=== PATIENT | female | born 1940 | race Caucasian/White ===

== ENCOUNTER 2020-08-21 17:21 | Observation (INO) ==
[2020-08-21] MEDS ORDERED: 0.9 % Sodium Chloride 1,000 ML IVC ONE (18:24)
[2020-08-21] MEDS ORDERED: Isovue-370 500 ML BOTTLE IVP ONE (18:24)
[2020-08-21] MEDS ORDERED: Ondansetron 4 MG/2 ML VIAL IVP ONE (18:40)
[2020-08-21] MEDS ORDERED: Morphine Sulfate 2 MG/ML SYRINGE IVP ONE (18:40)
[2020-08-21 18:54] LABS: Basophils # 0.1 K/mcL (0.0-0.2); Basophils % 0.8 %; Eosinophils # 0.3 K/mcL (0.0-0.6); Eosinophils % 3.9 %; Hematocrit 30.8 % (35.3-44.9); Hemoglobin 10.1 g/dL (11.5-15.4); Immature Granulocytes % 0.2 % (0-4); Lymphocytes # 2.1 K/mcL (0.6-4.6); Lymphocytes % 24.4 %; Mean Corpuscular HGB Conc 32.8 g/dL (31.6-35.5); Mean Corpuscular Hemoglobin 31.3 pg (28.0-33.3); Mean Corpuscular Volume 95.4 fL (83.0-100.0); Mean Platelet Volume 9.8 fL (9.4-12.4); Monocytes # 0.8 K/mcL (0.0-1.3); Monocytes % 9.2 %; Neutrophils # 5.2 K/mcL (1.6-8.9); Platelet Count 350 K/mcL (140-400); Red Blood Count 3.23 M/mcL (3.82-4.97); Red Cell Distribution Width 12.4 % (11.5-14.5); Segmented Neutrophils % 61.5 %; White Blood Count 8.5 K/mcL (4.3-11.1)
[2020-08-21 19:05] LABS: INR 1.1; Prothrombin Time 12.6 Seconds (9.4-12.1)
[2020-08-21 19:08] LABS: Activated Partial Thrombo Time 32.4 Seconds (26.0-36.0)
[2020-08-21 19:19] LABS: BUN/Creatinine Ratio 22 (6-26); Blood Urea Nitrogen 20 mg/dL (8-23); Calcium 9.5 mg/dL (8.6-10.3); Carbon Dioxide 24 mEq/L (23-29); Chloride 108 mEq/L (98-107); Glucose 82 mg/dL (70-105); Osmolality,Calculated 294 (280-300); Potassium 4.5 mEq/L (3.5-5.1); Sodium 141 mEq/L (136-145); Troponin I < 0.03 ng/mL (< 0.04); eGFR For African Americans > 60 (> 60); eGFR For Non-African Americans 59 (> 60)
[2020-08-21] MEDS ORDERED: *HR* FentaNYL (PF) 100 MCG/2 ML VIAL IVP ONE ×2 (19:36→23:06)
[2020-08-21] MEDS ORDERED: Lidocaine Viscous Oral Soln 15 ML SOLUTION MM ONE (21:08)
[2020-08-21 21:38] LABS: Bilirubin,Urine Negative (Negative); Blood,Urine Negative (Negative); Clarity,Urine Clear (Clear); Color,Urine Light-Yellow (Yellow); Glucose,Urine (UA) Normal (Normal); Ketones,Urine 10 mg/dL (Negative); Leukocyte Esterase,Urine Small (Negative); Mucus,Urine Few per lpf (None-Few); Nitrite,Urine Negative (Negative); PH,Urine 5.5 pH Units (5.0-8.0); Protein,Urine Negative (Neg-Trace); RBC,Urine 0-3 per hpf (0-3); Specific Gravity,Urine > 1.030 (1.010-1.025); Urobilinogen,Urine Normal (Normal); WBC,Urine 0-3 per hpf (0-3)
[2020-08-22] MEDS ORDERED: Ondansetron ODT 4 MG TAB.RAPDIS SL PRN (00:11)
[2020-08-22] MEDS ORDERED: Naloxone 0.4 MG/ML INJ IVP PRN (00:11)
[2020-08-22] MEDS: Pantoprazole 40 MG VIAL IVP SCH ×3 (01:50→16:44)
[2020-08-22 02:10] LABS: Basophils % 0.6 %; Eosinophils # 0.2 K/mcL (0.0-0.6); Eosinophils % 3.6 %; Hemoglobin 9.7 g/dL (11.5-15.4); Immature Granulocytes % 0.5 % (0-4); Lymphocytes # 1.6 K/mcL (0.6-4.6); Lymphocytes % 24.8 %; Mean Corpuscular HGB Conc 32.3 g/dL (31.6-35.5); Mean Corpuscular Volume 95.8 fL (83.0-100.0); Mean Platelet Volume 9.9 fL (9.4-12.4); Monocytes # 0.5 K/mcL (0.0-1.3); Monocytes % 7.7 %; Neutrophils # 4.1 K/mcL (1.6-8.9); Platelet Count 344 K/mcL (140-400); Red Blood Count 3.13 M/mcL (3.82-4.97); Red Cell Distribution Width 12.7 % (11.5-14.5); Segmented Neutrophils % 62.8 %; White Blood Count 6.5 K/mcL (4.3-11.1)
[2020-08-22 02:32] LABS: BUN/Creatinine Ratio 23 (6-26); Blood Urea Nitrogen 19 mg/dL (8-23); Calcium 9.2 mg/dL (8.6-10.3); Carbon Dioxide 22 mEq/L (23-29); Chloride 109 mEq/L (98-107); Glucose 78 mg/dL (70-105); Osmolality,Calculated 293 (280-300); Potassium 3.8 mEq/L (3.5-5.1); Sodium 141 mEq/L (136-145); eGFR For African Americans > 60 (> 60); eGFR For Non-African Americans > 60 (> 60)
[2020-08-22] MEDS ORDERED: 0.9 % Sodium Chloride 1,000 ML IVC SCH (10:30)
[2020-08-22] MEDS ORDERED: Ipratropium/Albuterol Neb 3 ML IH PRN (12:19)
[2020-08-22] MEDS ORDERED: Acetaminophen IV 500 MG/50 ML BAG IVPB ONE (15:11)
[2020-08-22] MEDS: Sucralfate 1 GM TABLET PO SCH (16:44)
[2020-08-22] MEDS: ALPRAZolam 0.25 MG TABLET PO PRN (21:45)
[2020-08-22] MEDS: Acetaminophen 325 MG TABLET PO PRN (21:50)
[2020-08-22] MEDS ORDERED: Budesonide Neb 0.5 MG/2 ML IH ONE (22:03)
[2020-08-22] MEDS: Ipratropium/Albuterol Neb 3 ML IH SCH (22:05)
[2020-08-22] MEDS: Budesonide Neb 0.25 MG/2 ML IH SCH (22:06)
[2020-08-23 01:49] LABS: Basophils % 0.3 %; Eosinophils # 0.5 K/mcL (0.0-0.6); Eosinophils % 6.9 %; Hematocrit 27.9 % (35.3-44.9); Immature Granulocytes % 0.4 % (0-4); Lymphocytes # 0.9 K/mcL (0.6-4.6); Mean Corpuscular HGB Conc 32.3 g/dL (31.6-35.5); Mean Corpuscular Hemoglobin 30.9 pg (28.0-33.3); Mean Corpuscular Volume 95.9 fL (83.0-100.0); Mean Platelet Volume 9.9 fL (9.4-12.4); Monocytes # 0.5 K/mcL (0.0-1.3); Monocytes % 6.6 %; Neutrophils # 5.7 K/mcL (1.6-8.9); Platelet Count 323 K/mcL (140-400); Red Blood Count 2.91 M/mcL (3.82-4.97); Red Cell Distribution Width 12.9 % (11.5-14.5); Segmented Neutrophils % 73.8 %; White Blood Count 7.7 K/mcL (4.3-11.1)
[2020-08-23 02:07] LABS: BUN/Creatinine Ratio 22 (6-26); Blood Urea Nitrogen 22 mg/dL (8-23); Calcium 8.6 mg/dL (8.6-10.3); Carbon Dioxide 23 mEq/L (23-29); Chloride 110 mEq/L (98-107); Glucose 133 mg/dL (70-105); Osmolality,Calculated 293 (280-300); Potassium 3.8 mEq/L (3.5-5.1); Sodium 139 mEq/L (136-145); eGFR For African Americans > 60 (> 60); eGFR For Non-African Americans 53 (> 60)
[2020-08-23] MEDS: Ipratropium/Albuterol Neb 3 ML IH SCH ×3 (04:28→16:15)
[2020-08-23] MEDS: Pantoprazole 40 MG VIAL IVP SCH (05:39)
[2020-08-23] MEDS: Sucralfate 1 GM TABLET PO SCH ×2 (07:56→15:44)
[2020-08-23] MEDS: Acetaminophen 325 MG TABLET PO PRN ×2 (08:00→13:44)
[2020-08-23] MEDS ORDERED: Metoprolol XL (24 HR) Succ 50 MG TAB.ER.24H PO SCH (09:00)
[2020-08-23] MEDS: Budesonide Neb 0.25 MG/2 ML IH SCH (10:16)
[2020-08-23 10:32] VITALS: BP 114/59
[2020-08-23] MEDS: ALPRAZolam 0.25 MG TABLET PO PRN (15:58)
== END 2020-08-23 18:10 | disposition short-term general hospital (02) ==
LOC: EMEROOARM 17:21 → 3BNU 17:21
PROVIDERS: ADMIT Student in an Organized Health Care Education/Training Program; ATTEND Student in an Organized Health Care Education/Training Program

== ENCOUNTER 2020-12-12 11:19 | Inpatient (IN) ==
[2020-12-12] MEDS ORDERED: Acetaminophen 325 MG TABLET PO PRN (15:13)
[2020-12-12] MEDS ORDERED: Naloxone 0.4 MG/ML INJ IVP PRN (15:13)
[2020-12-12] MEDS ORDERED: Ondansetron 4 MG/2 ML VIAL IVP PRN (15:13)
[2020-12-12] MEDS ORDERED: Albuterol 2.5 MG/3 ML NEBULIZER IH PRN (15:35)
[2020-12-12] MEDS ORDERED: ALPRAZolam 0.25 MG TABLET PO PRN (16:14)
[2020-12-12] MEDS: Ipratropium/Albuterol Neb 3 ML IH SCH ×2 (16:37→21:06)
[2020-12-12] MEDS ORDERED: Perflutren Lipid Microsphere 1.3 ML in 0.9 % Sodium Chloride 8.7 ML IVP PRN (16:38)
[2020-12-12] MEDS: Azithromycin 500 MG in 0.9 % Sodium Chloride 250 ML IVPB SCH (17:58)
[2020-12-12] MEDS: MethylPREDNISolone 40 MG/ML VIAL IVP SCH ×2 (18:05→23:36)
[2020-12-12] MEDS ORDERED: Budesonide Neb 0.25 MG/2 ML IH SCH (21:00)
[2020-12-13 00:45] LABS: Hematocrit 28.1 % (35.3-44.9); Hemoglobin 9.2 g/dL (11.5-15.4); Mean Corpuscular HGB Conc 32.7 g/dL (31.6-35.5); Mean Corpuscular Volume 91.5 fL (83.0-100.0); Mean Platelet Volume 9.9 fL (9.4-12.4); Platelet Count 274 K/mcL (140-400); Red Blood Count 3.07 M/mcL (3.82-4.97); Red Cell Distribution Width 13.2 % (11.5-14.5); White Blood Count 6.3 K/mcL (4.3-11.1)
[2020-12-13 00:56] LABS: BUN/Creatinine Ratio 39 (6-26); Blood Urea Nitrogen 42 mg/dL (8-23); Calcium 9.6 mg/dL (8.6-10.3); Carbon Dioxide 19 mEq/L (23-29); Chloride 105 mEq/L (98-107); Glucose 153 mg/dL (70-105); Magnesium 1.7 mg/dL (1.6-2.6); Osmolality,Calculated 292 (280-300); Potassium 4.3 mEq/L (3.5-5.1); Sodium 134 mEq/L (136-145); eGFR For African Americans 58 (> 60); eGFR For Non-African Americans 48 (> 60)
[2020-12-13 00:57] LABS: Troponin I < 0.03 ng/mL (< 0.04)
[2020-12-13] MEDS: Ipratropium/Albuterol Neb 3 ML IH SCH ×4 (03:05→22:14)
[2020-12-13] MEDS: MethylPREDNISolone 40 MG/ML VIAL IVP SCH (05:46)
[2020-12-13] MEDS ORDERED: *HR* Enoxaparin 40 MG/0.4 ML SYRINGE SQ SCH (07:00)
[2020-12-13] MEDS: Metoprolol XL (24 HR) Succ 50 MG TAB.ER.24H PO SCH (08:23)
[2020-12-13] MEDS: predniSONE 20 MG TABLET PO SCH (08:24)
[2020-12-13] MEDS: Budesonide Neb 0.25 MG/2 ML IH SCH ×2 (10:09→22:14)
[2020-12-13] MEDS: Azithromycin 500 MG in 0.9 % Sodium Chloride 250 ML IVPB SCH (17:49)
[2020-12-14 01:48] LABS: Basophils % 0.3 %; Hematocrit 25.8 % (35.3-44.9); Hemoglobin 8.4 g/dL (11.5-15.4); Immature Granulocytes % 0.5 % (0-4); Lymphocytes # 1.9 K/mcL (0.6-4.6); Lymphocytes % 12.6 %; Mean Corpuscular HGB Conc 32.6 g/dL (31.6-35.5); Mean Corpuscular Volume 92.1 fL (83.0-100.0); Mean Platelet Volume 10.6 fL (9.4-12.4); Monocytes # 1.1 K/mcL (0.0-1.3); Monocytes % 7.5 %; Neutrophils # 11.9 K/mcL (1.6-8.9); Platelet Count 277 K/mcL (140-400); Red Cell Distribution Width 13.4 % (11.5-14.5); Segmented Neutrophils % 79.1 %
[2020-12-14 01:58] LABS: Basophils # 0.1 K/mcL (0.0-0.2); White Blood Count 15.1 K/mcL (4.3-11.1)
[2020-12-14 02:19] LABS: Estimated Average Glucose 120 mg/dl; Hemoglobin A1C 5.8 %
[2020-12-14 02:20] LABS: Albumin 3.6 g/dL (3.5-5.7); Albumin/Globulin Ratio 1.4 (1.1-2.2); Bilirubin,Indirect 0.3 mg/dL (0.0-1.0); Bilirubin,Total 0.3 mg/dL (0.3-1.0); Calcium 9.1 mg/dL (8.6-10.3); Globulin 2.5 g/dL (2.4-3.5); Magnesium 1.9 mg/dL (1.6-2.6); Potassium 4.3 mEq/L (3.5-5.1); Total Protein 6.1 g/dL (6.4-8.9)
[2020-12-14 02:21] LABS: % Iron Saturation 19 % (15-50); Iron 50 mcg/dL (50-170); Transferrin 189 mg/dL (203-362)
[2020-12-14 02:22] LABS: Thyroid Stimulating Hormone 0.649 mcIU/mL (0.340-5.600)
[2020-12-14 02:29] LABS: Ferritin 73 ng/mL (10-120)
[2020-12-14 02:37] LABS: Folate > 22.3 ng/mL (3.0-16.0); Vitamin B12 823 pg/mL (250-1100)
[2020-12-14] MEDS: Ipratropium/Albuterol Neb 3 ML IH SCH ×4 (03:55→22:00)
[2020-12-14] MEDS: *HR* Enoxaparin 30 MG/0.3 ML SYRINGE SQ SCH (05:50)
[2020-12-14] MEDS: predniSONE 20 MG TABLET PO SCH (08:36)
[2020-12-14] MEDS: Azithromycin 250 MG TABLET PO SCH (08:36)
[2020-12-14] MEDS: Metoprolol XL (24 HR) Succ 50 MG TAB.ER.24H PO SCH (08:55)
[2020-12-14] MEDS: Budesonide Neb 0.25 MG/2 ML IH SCH ×2 (10:43→22:01)
[2020-12-14] MEDS ORDERED: Simethicone/Sodium Bic/Citr Ac 1 EACH GRAN.EF.PK PO ONE (15:12)
[2020-12-14] MEDS ORDERED: E-Z-HD (BARIUM SULF) SUSPENSION PO ONE (15:12)
[2020-12-14] MEDS ORDERED: E-Z-PAQUE (BARIUM SULF) SUSP 1 BOTTLE PO ONE (15:12)
[2020-12-14] MEDS ORDERED: Bisacodyl 10 MG RECTAL SUPPOSITORY RC ONE (15:54)
[2020-12-14] MEDS: Nystatin SUSP 5 ML UD.LIQ PO SCH ×2 (16:41→21:16)
[2020-12-14] MEDS ORDERED: Nystatin SUSP 5 ML UD.LIQ BC SCH (17:00)
[2020-12-15] MEDS: Ipratropium/Albuterol Neb 3 ML IH SCH ×2 (03:40→09:26)
[2020-12-15] MEDS: *HR* Enoxaparin 30 MG/0.3 ML SYRINGE SQ SCH (05:32)
[2020-12-15 05:59] LABS: Hematocrit 26.1 % (35.3-44.9); Hemoglobin 8.8 g/dL (11.5-15.4); Mean Corpuscular HGB Conc 33.7 g/dL (31.6-35.5); Mean Corpuscular Hemoglobin 30.8 pg (28.0-33.3); Mean Corpuscular Volume 91.3 fL (83.0-100.0); Mean Platelet Volume 10.6 fL (9.4-12.4); Platelet Count 290 K/mcL (140-400); Red Blood Count 2.86 M/mcL (3.82-4.97); Red Cell Distribution Width 13.7 % (11.5-14.5); White Blood Count 11.5 K/mcL (4.3-11.1)
[2020-12-15 06:00] LABS: Immature Reticulocyte % 14.7 % (11.0-38.0); Retculocyte # 0.04 M/mcL (0.05-0.10); Reticulocyte % 1.5 % (1.6-2.8)
[2020-12-15 06:25] LABS: BUN/Creatinine Ratio 41 (6-26); Blood Urea Nitrogen 39 mg/dL (8-23); Calcium 9.2 mg/dL (8.6-10.3); Carbon Dioxide 22 mEq/L (23-29); Chloride 109 mEq/L (98-107); Glucose 97 mg/dL (70-105); Magnesium 1.9 mg/dL (1.6-2.6); Osmolality,Calculated 297 (280-300); Potassium 3.7 mEq/L (3.5-5.1); Sodium 139 mEq/L (136-145); eGFR For African Americans > 60 (> 60); eGFR For Non-African Americans 56 (> 60)
[2020-12-15] MEDS: Metoprolol XL (24 HR) Succ 50 MG TAB.ER.24H PO SCH (07:30)
[2020-12-15] MEDS: predniSONE 20 MG TABLET PO SCH (07:30)
[2020-12-15] MEDS: Azithromycin 250 MG TABLET PO SCH (07:30)
[2020-12-15] MEDS: Nystatin SUSP 5 ML UD.LIQ PO SCH ×2 (07:30→12:52)
[2020-12-15] MEDS: Budesonide Neb 0.25 MG/2 ML IH SCH (09:26)
[2020-12-15 09:57] VITALS: BP 162/77
[2020-12-15 10:00] LABS: Adenovirus Not Detected (Not Detect); Bordetella Pertussis Not Detected (Not Detect); Chlamydophila pneumoniae Not Detected (Not Detect); Coronavirus 229E Not Detected (Not Detect); Coronavirus HKU1 Not Detected (Not Detect); Coronavirus NL63 Not Detected (Not Detect); Coronavirus OC43 Not Detected (Not Detect); Human Metapneumovirus Not Detected (Not Detect); Human Rhinovirus/Enterovirus Not Detected (Not Detect); Influenza A Subtype 2009 H1 Not Detected (Not Detect); Influenza B Not Detected (Not Detect); Mycoplasma pneumoniae Not Detected (Not Detect); Parainfluenza Virus 1 Not Detected (Not Detect); Parainfluenza Virus 2 Not Detected (Not Detect); Parainfluenza Virus 3 Not Detected (Not Detect); Parainfluenza Virus 4 Not Detected (Not Detect); Respiratory Syncytial Virus Not Detected (Not Detect); SARS-CoV-2 Not Detected (Not Detect)
== END 2020-12-15 15:41 | disposition home or self-care (01) | DRG 190 ==
LOC: 3BNU → SUATTDRO 18:41
PROVIDERS: ADMIT Internal Medicine; ATTEND Internal Medicine